=== PATIENT | male | born 1955 | race Caucasian/White ===

== ENCOUNTER 2024-03-31 14:56 | Outpatient (OUT) | payer MEDICARE, SELFPAY | END 2024-03-31 14:57 | disposition home or self-care (01) | LOC: CARD 14:57 | PROVIDERS: PCP Family Medicine; Visit Provider Family Medicine | DX: R55 Syncope and collapse (principal) | CPT/HCPCS: 93246 ==

== ENCOUNTER 2024-04-01 08:39 | Outpatient (OUT) | payer MEDICARE, SELFPAY ==
--- OUTSIDE RECORDS SUMMARY | 2024-04-01 08:47 | XMS_ITS | CCD ---
Author Organization [facility] Care Team Providers Care Oxygen Equipment Aide Name Role Phone DR BRIGIDO MARCOS Attending Unavailable DR BRIGIDO MARCOS Consulting Unavailable DR BRIGIDO MARCOS Primary Care Unavailable DR BRIGIDO MARCOS Admitting Unavailable Problems Active Problems Problem Classification Problem Date Documented Da te Episodic/Chronic Unclassified (2 sources) CONTACT W/AND (SUSP) EXPOS COVID-19; Translations: [CONTACT W/AND (SUSP) EXPOS COVID-19] Onset: 10-25-2021 Viral infection (1 source) COVID-19; Translations: [COVID-19] Onset: 10-25-2021 Past or Other Problems Problem Classification Problem Date Documented Da te Episodic/Chronic Unclassified (1 source) CONTACT W/AND (SUSP) EXPOS COVID-19; Translations: [CONTACT W/AND (SUSP) EXPOS COVID-19] Onset: 10-18-2021 Results Test Name Value Interpretation Reference Range Facil ity Covid-19 PCR (CVDTBH)on SARS-CoV-2 (COVID-19) RNA ROD+probe Ql (Unsp spec) Detected Critically abnormal NOT DETECTED [facility] Comment on above: Result Comment: This test is not yet alan roved or cleared by the [place] FDA. When there are no FDA-approved or cleared tests available, and other criteria are met, FDA can make tests available under an emergency access mechanism called an Emergency Use Authorization (EUA). The EUA for this test is supported by the [employer] of Health and Human Service's (HHS's) declaration that circumstances exist to justify the emergency use of in vitro diagnostics for the detection and/or diagnosis of the virus that causes COVID-19. This EUA will remain in effect (meaning this test can be used) for the duration of the COVID-19 declaration justifying emergency of IVDs, unless it is terminated or revoked by FDA (after which the test may no longer be used). Performed By: #### C VDTB #### [facility] [address] [place], [place] [address] Dr. Nelia Lantigua Encounters Encounter Date Encounter Type Care Provider Facility Start: 10-18-2021 End: 10-18-[address] BRIGIDO MARCOS Facility:H1 Payers Date Payer Category Payer Unknown [id number] 1955 Unknown [id number] Summary Purpose Family History No Family History Records Found Advance Directives No Advanced Directives Records Found Additional Source Comments (unrecognized sect ion and content) No Status Records Found INFORMATION SOURCE (unrecogn ized section and content) DATE CREATED AUTHOR 09/19/2022 [facility] FOR RECORDS PERTAINING TO PATIENTS WHO ARE OR HAVE BEEN ENROLLED IN A CHEMICAL DEPENDENCY/SUBSTANCEABUSE PROGRAM, SOME INFORMATION MAY BE OMITTED. This clinical summary was aggregated from multiple sources. Caution should be exercised in using it in the provision of clinical care. This summary normalizes information from multiple sources, and as a consequence, information in this document may materially change the coding, format and clinical context of patient data. In addition, data may be omitted in some cases. CLINICAL DECISIONS SHOULD BE BASED ON THE PRIMARY CLINICAL RECORDS. [facility] [employer] provides no warranty or guarantee of the accuracy or completeness of information in this document.
[2024-04-01 09:13] LABS: Basophils Absolute Auto 0.1 10^3/uL (0.0-0.1); Eosinophils Absolute Auto 0.8 10^3/uL (0.0-0.7); Eosinophils Percent Auto 8.9 % (0.9-7.0); Hematocrit 39.1 % (42.0-54.0); Hemoglobin 12.9 g/dL (14.0-18.0); Immature Granulocytes Abs Auto 0.01 10^3/uL (0.00-0.03); Immature Granulocytes Pct Auto 0.1 % (0.0-0.5); Lymphocytes Absolute Auto 3.3 10^3/uL (1.2-3.8); Lymphocytes Percent Auto 37.5 % (20.5-60.0); Mean Corpuscular Hemoglobin 30.4 pg (25.9-34.0); Mean Platelet Volume 10.6 fL (9.5-13.5); Monocytes Absolute Auto 0.7 10^3/uL (0.3-0.8); Monocytes Percent Auto 7.8 % (1.7-12.0); Neutrophils Percent Auto 44.7 % (43.0-75.0); Platelet Count 229 10^3/uL (150-450); Red Blood Count 4.25 10^6/uL (4.70-6.10); Red Cell Distribution Width 13.4 % (11.0-15.0); White Blood Count 8.9 10^3/uL (4.0-11.0)
[2024-04-01 10:02] LABS: Alanine Aminotransferase 21 U/L (16-63); Albumin Globulin Ratio 0.9; Albumin Level 3.6 g/dL (3.4-5.0); Alkaline Phosphatase 61 U/L (46-116); Anion Gap 10.5; Aspartate Amino Transferase 18 U/L (15-37); BUN Creatinine Ratio 22.4; Bilirubin Total 0.3 mg/dL (0.2-1.0); Calcium 8.4 mg/dL (8.5-10.1); Carbon Dioxide 28.8 mmol/L (21.0-32.0); Chloride 104 mmol/L (98-107); Cholesterol 207 mg/dL (<=200); Estimated GFR (African America >60 (>=60); Estimated GFR (Non-African Ame >60 (>=60); Free T3 2.13 pg/mL (2.18-3.98); Globulin 4.2 g/dL; Glucose 97 mg/dL (74-106); HDL Cholesterol 70 mg/dL (40-60); Potassium 4.3 mmol/L (3.5-5.1); Sodium 139 mmol/L (136-145); Thyroid Stimulating Hormone 33.689 uIU/mL (0.358-3.740); Total Protein 7.8 g/dL (6.4-8.2); Triglycerides 64 mg/dL (<=150); VLDL CHOLESTEROL 12.8 mg/dL
[2024-04-01 10:51] LABS: Estimated Average Glucose 117 mg/dL; Glycohemoglobin A1C 5.7 % (4.5-6.2)
[2024-04-01 19:19] LABS: Internal Control Within Normal Limits; Occult Blood Positive
[2024-04-02 06:09] LABS: Insulin 4.4 uIU/mL (2.6-24.9)
== END 2024-04-01 08:40 | disposition home or self-care (01) ==
PROVIDERS: PCP Family Medicine; Visit Provider Family Medicine
DX: R55 Syncope and collapse (principal); R00.0 Tachycardia, unspecified; M25.552 Pain in left hip
CPT/HCPCS: 36415; 80053; 80061; 83036; 83525; 84436; 84443; 84481; 85025; G0328

== ENCOUNTER 2024-04-22 09:50 | Outpatient (OUT) | payer MEDICARE, SELFPAY ==
--- NOTE | 2024-04-22 09:59 | CA_ITS ---
Patient Name: JESSICA SWENSON MR#: [id number] : 1955 Exam Date: 04/22/2024 Ordering Doctor: DR Dimitri Pantoja . ECHOCARDIOGRAM REPORT PROCEDURE: CA ECHO DOPPLER COMPLETE INDICATIONS: Syncope and collapse COMPARISON: None. DESCRIPTION: COMPLETE ECHOCARDIOGRAM Real-time transthoracic echocardiography with 2D, M-mode, spectral and color flow Doppler performed. QUALITY: Technical quality was good. LEFT VENTRICLE: Normal chamber size. Normal left ventricular wall thickness. LV EF: Global left ventricular systolic function is normal. Calculated left ventricular ejection fraction is 57%. No significant wall motion abnormalities. DIASTOLIC: Normal diastolic function. ATRIAL SEPTUM: Inadequately seen. LEFT ATRIUM: Normal chamber size. RIGHT ATRIUM: Normal chamber size. RIGHT VENTRICLE: Normal chamber size. Normal right ventricular systolic function. TRICUSPID VALVE: Normal mobility and thickness. No stenosis with mild regurgitation. No evidence of pulmonary hypertension. RVSP 29mmHg MITRAL VALVE: Normal mobility and thickness. No evidence of mitral valve stenosis. There is no mitral annular calcification. Trivial mitral regurgitation. AORTIC VALVE: Normal trileaflet appearance. Thickened aortic valve. Normal leaflet mobility. No evidence of aortic valve stenosis. No aortic regurgitation. AORTIC ROOT: Normal diameter and appearance. PULMONIC VALVE: Normal thickness and mobility. No stenosis. Trivial regurgitation. PERICARDIUM: No evidence of pericardial effusion. IVC: Collapses with inspirations. Normal size. CONCLUSION: 1. Global left ventricular systolic function is normal; visually estimated ejection fraction is 55 to 60% 2. Normal right ventricular size and systolic function 3. The left atrium is normal in size 4. Mild tricuspid regurgitation Adult Echocardiography Procedure Report Left Ventricle LVEDD (3.7 - 5.6 cm): 4.57 cm LVESD (2.2 - 4.0 cm): 3.22 cm LVIVS thickness (0.6 - 1.2 cm): 0.83 cm LVPW thickness (0.5 - 1.0 cm): 0.71 cm e': 0.09 m/s E - e': 5.56 LVOT Max Gradient: 1.84 mm[Hg] LVOT Area (cm2): 0.68 m/s Peak Velocity (LVOT): 0.68 m/s Mean Velocity (LVOT): 0.46 m/s LVOT Diameter 1.86 cm Left Ventricular Ejection Fraction: 57.23 % Left Atrium LA Volume Index (2D A2C): 19.81 ml/m2 Left Atrium Systolic Dimension: 2.85 cm Mitral Valve MV E to A Ratio: 1.12 Mitral Valve A-Wave Peak Velocity: 0.44 m/s Mitral Valve E-Wave Peak Velocity: 0.50 m/s Right Ventricle RV Internal Diastolic Dimension: 3.24 cm Aorta AO Root Diam: 2.95 cm Ascending Ao Diam: 2.46 cm Aortic Valve AoV Area (Peak Dony): 1.76 cm2, 1.76 cm2 AoV Area (VTI): 1.62 cm2, 1.62 cm2 Peak Velocity(Antegrade Flow): 1.05 m/s Peak Gradient(Antegrade Flow): 4.40 mm[Hg] Mean Velocity(Antegrade Flow): 0.75 m/s Mean Gradient(Antegrade Flow): 2.47 mm[Hg] Velocity Time Integral: 24.42 cm Tricuspid Valve Peak Velocity (Regurgitant Flow): 1.68 m/s, 2.11 m/s, 2.53 m/s Pulmonic Valve Peak Velocity: 0.72 m/s Peak Gradient: 2.05 mm[Hg], 2.14 mm[Hg] Right Atrium Right Atrium Systolic Pressure: 32.05 ml, 32.05 ml Dictated by: Suni Mcbride M.D. on 04/22/2024 at 11:13 Approved by: Suni Mcbride M.D. on 04/22/2024 at 11:16
== END 2024-04-22 09:51 | disposition home or self-care (01) ==
LOC: CARD 09:50
PROVIDERS: PCP Family Medicine; Visit Provider Family Medicine
DX: R55 Syncope and collapse (principal); I07.1 Rheumatic tricuspid insufficiency
CPT/HCPCS: 93306

== ENCOUNTER 2024-05-18 14:52 | Outpatient (OUT) | payer MEDICARE, SELFPAY ==
[2024-05-18 15:34] LABS: Free T3 1.63 pg/mL (2.18-3.98); Thyroid Stimulating Hormone 6.589 uIU/mL (0.358-3.740)
== END 2024-05-18 14:53 | disposition home or self-care (01) ==
LOC: LAB 14:52
PROVIDERS: PCP Family Medicine; Visit Provider Family Medicine
DX: E03.9 Hypothyroidism, unspecified (principal)
CPT/HCPCS: 36415; 84436; 84443; 84481

== ENCOUNTER 2024-06-15 11:35 | Outpatient (OUT) | payer MEDICARE, SELFPAY ==
[2024-06-15 12:30] LABS: Free T3 2.82 pg/mL (2.18-3.98); Thyroid Stimulating Hormone 6.729 uIU/mL (0.358-3.740)
== END 2024-06-15 11:36 | disposition home or self-care (01) ==
LOC: LAB 11:35
PROVIDERS: PCP Family Medicine; Visit Provider Family Medicine
DX: E03.9 Hypothyroidism, unspecified (principal)
CPT/HCPCS: 36415; 84436; 84443; 84481

== ENCOUNTER 2025-06-30 10:45 | Outpatient (OUT) | payer MEDICARE, SELFPAY ==
--- OUTSIDE RECORDS SUMMARY | 2025-06-30 10:48 | XMS_ITS | CCD ---
Author Organization [facility] Care Team Providers Care Bar Staff Name Role Phone DR BRIGIDO MARCOS Attending [...] spec) Detected Critically abnormal NOT DETECTED [facility] Comment on above: Result Comment: This test is not yet alna roved or cleared by the [place] FDA. When there are no FDA-approved or cleared tests available, and other criteria are met, FDA can make tests available under an emergency access mechanism called an Emergency Use Authorization (EUA). The EUA for this test is supported by the [place] of Health and Human Service's (HHS's) declaration [...] used). Performed By: #### C VDTB #### [facility] [address] [place], [place] [address] Dr. Nelia Lantigua Encounters Encounter Date Encounter Type Care Provider Facility Start: 10-18-2021 End: 10-18-[address] BRIGIDO MARCSO Facility:H1 Payers Date Payer Category Payer Unknown [id number] 1955 Unknown [id number] Summary Purpose Family History No Family History Records Found Advance Directives No Advanced Directives Records Found Additional Source Comments (unrecognized sect ion and content) No Status Records Found INFORMATION SOURCE (unrecogn ized section and content) DATE CREATED AUTHOR 09/19/2022 [facility] FOR RECORDS PERTAINING TO PATIENTS WHO [...] BE BASED ON THE PRIMARY CLINICAL RECORDS. [facility] [employer] provides no warranty or guarantee of the accuracy or completeness of information in this document.
[2025-06-30 11:15] LABS: Hematocrit 39.6 % (42.0-54.0); Hemoglobin 13.3 g/dL (14.0-18.0); Immature Granulocytes Abs Auto 0.03 10^3/uL (0.00-0.03); Immature Granulocytes Pct Auto 0.3 % (0.0-0.5); Lymphocytes Absolute Auto 2.8 10^3/uL (1.2-3.8); Mean Corpuscular HGB Conc 33.6 g/dL (29.9-35.2); Mean Corpuscular Hemoglobin 30.2 pg (25.9-34.0); Mean Corpuscular Volume 90.0 fL (80.0-94.0); Platelet Count 209 10^3/uL (150-450); Red Blood Count 4.40 10^6/uL (4.70-6.10); White Blood Count 9.5 10^3/uL (4.0-11.0)
[2025-06-30 12:19] LABS: Alanine Aminotransferase 27 U/L (16-63); Albumin Globulin Ratio 0.9; Albumin Level 3.8 g/dL (3.4-5.0); Alkaline Phosphatase 66 U/L (46-116); Anion Gap 11.2; Aspartate Amino Transferase 23 U/L (15-37); Blood Urea Nitrogen 22.0 mg/dL (7.0-18.0); Calcium 9.3 mg/dL (8.5-10.1); Carbon Dioxide 29.5 mmol/L (21.0-32.0); Chloride 104 mmol/L (98-107); Cholesterol 270 mg/dL (<=200); Estimated GFR (African America >60 (>=60 mL/min/1.73m^2); Estimated GFR (Non-African Ame >60 (>=60 mL/min/1.73m^2); Free T3 1.50 pg/mL (2.18-3.98); Globulin 4.2 g/dL; Glucose 97 mg/dL (74-106); HDL Cholesterol 68 mg/dL (40-60); Potassium 4.7 mmol/L (3.5-5.1); Sodium 140 mmol/L (136-145); Thyroid Stimulating Hormone 5.445 uIU/mL (0.358-3.740); Total Protein 8.0 g/dL (6.4-8.2); Triglycerides 90 mg/dL (<=150); VLDL CHOLESTEROL 18.0 mg/dL
== END 2025-06-30 10:46 | disposition home or self-care (01) ==
LOC: LAB 10:45
PROVIDERS: PCP Family Medicine; Visit Provider Family Medicine
DX: E03.9 Hypothyroidism, unspecified (principal); M53.86 Other specified dorsopathies, lumbar region; R73.09 Other abnormal glucose; Z12.5 Encounter for screening for malignant neoplasm of prostate
CPT/HCPCS: 36415; 80053; 80061; 83036; 84436; 84443; 84481; 85025; G0103; G0328

== ENCOUNTER 2025-07-30 09:07 | Outpatient (OUT) | payer MEDICARE, SELFPAY ==
--- OUTSIDE RECORDS SUMMARY | 2025-07-30 09:16 | XMS_ITS | Patient Health Record ---
Author Organization The [facility] [place] Address [address] [place] [address] Care Team Providers Care Eligibility Analyst Name Role Phone Miguel Pantoja Primary Care Provider [phone] Allergies Allergen (clinical drug ingredient) Drug/Non Drug Allergy documented on EMR Reaction Allergy Type Onset Date Status Penicillin rash/hives Drug Allergy Activ e Results Component Value Reference Range Notes PROF 14(COMP METB) Reviewed date:06/30/2025 01:18:16 PM Interpretation: Performing Lab: Notes/Report: [facility] , Sodium 140 136-145 mmol/L Potassium 4.7 3.5-5.1 mmol/L Chloride 104 98-107 mmol/L Carbon Dioxide 29.5 21.0-32.0 mmol/L Anion Gap 11.2 Glucose 97 74-106 mg/dL Blood Urea Nitrogen 22.0 7.0-18.0 mg/dL Creatinine 0.92 0.70-1.30 mg/dL Estimated GFR ( Urimla >60 >=60 mL/min/1.73m 2 Estimated GFR (Non- Tameka >60 >=60 mL/min/1.73m 2 BUN Creatinine Ratio 23.9 Calcium 9.3 8.5-10.1 mg/dL Bilirubin Total 0.3 0.2-1.0 mg/dL Aspartate Amino Transferase 23 15-37 U/L Alanine Aminotransferase 27 16-63 U/L Alkaline Phosphatase 66 46-116 U/L Total Protein 8.0 6.4-8.2 g/dL Albumin Level 3.8 3.4-5.0 g/dL Globulin 4.2 Albumin Globulin Ratio 0.9 Performing Lab: see note ML - [facility] LB PSA SCREENING Reviewed date:06/30/2025 01:18:16 PM Interpretation: Performing Lab: Notes/Report: [facility] , Prostate Specific Antigen Scrn 0.81 <=4.00 ng/mL Performing Lab: see note ML - [facility] LB T4 Reviewed date:06/30/2025 01:18:16 PM Interpretation: Performing Lab: Notes/Report: [facility] , T4 Thyroxine 8.30 4.50-12.10 ug/dL Performing Lab: see note ML - [facility] LB TSH Reviewed date:06/30/2025 01:18:16 PM Interpretation: Performing Lab: Notes/Report: [facility] , Thyroid Stimulating Hormone 5.445 0.358-3.740 u IU/mL Performing Lab: see note ML - [facility] LB LIPID PROFILE Reviewed date:06/30/2025 01:18:16 PM Interpretation: Performing Lab: Notes/Report: [facility] , Triglycerides 90 <=150 mg/dL Cholesterol 270 <=200 mg/dL HDL Cholesterol 68 40-60 mg/dL > or =60 mg/dl - LOW CARDIOVASCULAR RISK <40 mg/dl - HIGH CARDIOVASCULAR RISK LDL Cholesterol Calculated 184.0 130-159 mg/dl BORDERLINE HIGH >190 mg/dl VERY HIGH <100 mg/dl OPTIMAL 100-129 mg/dl NEAR OR ABOVE OPTIMAL 160-189 mg/dl HIGH VLDL CHOLESTEROL 18.0 Chol HDL Ratio 4.0 7.1 - 11.0 MODERATE RISK 4.4 - 7.1 AVERAGE RISK >11.0 HIGH RISK 3.3 - 4.4 LOW RISK Performing Lab: see note ML - [facility] LB GLYCOHEMOGLOBIN A1C Reviewed date:06/30/2025 01:18:16 PM Interpretation: Performing Lab: Notes/Report: [facility] , Glycohemoglobin A1C 5.6 4.5-6.2 % > 7.0 ADA RECOMMENDED LIMIT 4.0 - 6.0 ACTION SUGGESTED ADA THERAPEUTIC TARGET < 7.0 Estimated Average Glucose 114 Performing Lab: see note ML - [facility] FREE T3 Reviewed date:06/30/2025 01:18:16 PM Interpretation: Performing Lab: Notes/Report: [facility] , Free T3 1.50 2.18-3.98 pg/mL Performing Lab: see note ML - [facility] LB CBC AUTO DIFF Reviewed date:06/30/2025 01:18:16 PM Interpretation: Performing Lab: Notes/Report: [facility] , White Blood Count 9.5 4.0-11.0 10 3/uL Red Blood Count 4.40 4.70-6.10 10 6/uL Hemoglobin 13.3 14.0-18.0 g/dL Hematocrit 39.6 42.0-54.0 % Mean Corpuscular Volume 90.0 80.0-94.0 fL Mean Corpuscular Hemoglobin 30.2 25.9-34.0 pg Mean Corpuscular HGB Conc 33.6 29.9-35.2 g/dL Red Cell Distribution Width 13.3 11.0-15.0 % Platelet Count 209 150-450 10 3/uL Mean Platelet Volume 10.6 9.5-13.5 fL Neutrophils Percent Auto 57.8 43.0-75.0 % Lymphocytes Percent Auto 29.3 20.5-60.0 % Monocytes Percent Auto 6.1 1.7-12.0 % Eosinophils Percent Auto 5.4 0.9-7.0 % Basophils Percent Auto 1.1 0.2-2.0 % Immature Granulocytes Pct Auto 0.3 0.0-0.5 % Neutrophils Absolute Auto 5.5 1.4-6.5 10 3/uL Lymphocytes Absolute Auto 2.8 1.2-3.8 10 3/uL Monocytes Absolute Auto 0.6 0.3-0.8 10 3/uL Eosinophils Absolute Auto 0.5 0.0-0.7 10 3/uL Basophils Absolute Auto 0.1 0.0-0.1 10 3/uL Immature Granulocytes Abs Auto 0.03 0.00-0.03 10 3/uL Performing Lab: see note ML - [facility] LB Reason For Referral No Information Medications Medication SIG (Take, Route, Frequency, Duration) Notes Start Date End Date Status Liothyronine Sodium 5 MCG 2 tablet on an empty stomach Orally Once a day; Duration: 30 days 06/30/2025 Active Levothyroxine Sodium 100 MCG 1 tablet in the morning on an empty stomach Orally Once a day; Duration: 30 days Active Ferrous Sulfate 325 (65 Fe) MG 1 tablet Orally daily; Duration: 30 days 06/30/2025 Active Simvastatin 20 MG 1 tablet in the even ing Orally Once a day; Duration: 30 days 06/30/2025 Active Diclofenac Sodium 75 MG 1 tablet as need ed Orally Twice a day 03/31/2024 Active Social History Tobacco Use: Social History Observation Description Date Details (start date - stop date) Current Smoker 10/13/1969 - NA Tobacco Control (Standard) Question Answer Notes Tobacco use: Current smoker When did you start smoking? 10/13/1969 How often do you smoke cigarettes? Every day How many cigarettes a day do you smoke? 6-10 Additional Findings: Tobacco user Light cigarett e smoker (1-9 cigs/day) AUDIT-C (Standard) Question Answer Notes Did you have a drink containing alcohol in the p ast year? No Points 0 Interpretation Negative Problems Problem Type SNOMED Code ICD Code Onset Dates Problem Status W/U Status Risk Notes Problem Hypothyroidism (51760260) Hypothyroidism, unspecified (E03.9) Active confirmed Problem Hyperlipidemia (11745736) Hyperlipidemia (E78.5) Active confirmed Problem Tachycardia (8694865) Tachycardia (R00.0) Active confirmed Problem Anemia (446879659) Anemia (D64.9) Active confirmed Problem Syncope (962967276) Syncope (R55) Active confirmed Problem Arthralgia of the pelvic region and thigh (408247374) Left hip pain (M25.552) Active confirmed Problem Disorder of sacrum (88769135) Low back derangement syndrome (M53.86) Active confirmed Vital Signs Blood pressure diastolic 82 mm Hg 06/29/2025 Height 67 in 06/29/2025 Blood pressure systolic 128 mm Hg 06/29/2025 Weight 122 lbs 06/29/2025 BMI 19.11 kg/m2 06/29/2025 Encounters Encounter Location Date Provider Diagnosis [facility] [address] [place] [address] 06/29/2025 Miguel Pantoja Hypothyroidism, unspecified E03.9 and Low back derangement syndrome M53.86 [facility] [address] [place] [address] 06/23/2025 Miguel Yanesy [facility] [address] [place] [address] 06/30/2025 Miguel Pantoja Hypothyroidism, unspecified E03.9 and Hyperlipidemia E78.5 [facility] [address] [facility] [address] 07/01/2025 Miguel Pantoja Assessments Encounter Date Diagnosis (ICD Code) Assessment Notes Treatment Notes Treatment Clinical Notes Section Notes 06/29/2025 Hypothyroidism, unspecified (ICD-10 - E03.9) 06/29/2025 Low back derangement syndrome (ICD-10 - M53.86) 06/30/2025 Hypothyroidism, unspecified (ICD-10 - E03.9) 06/30/2025 Hyperlipidemia (ICD-10 - E78.5) Plan Of Treatment Pending Test Test Name Order Date Holter Test 03/31/2024 CMP (COMPLETE METABOLIC PANEL) 4 HEMOGLOBIN A1C (GLYCO) 06/29/2025 HEMOGLOBIN A1C (GLYCO) 03/31/2024 INSULIN, TOTAL 03/31/2024 LIPID PANEL (CHOL/TRIG/HDL/LDL) 03/31/20 24 LIPID PANEL (CHOL/TRIG/HDL/LDL) 06/29/20 25 CBC WITH DIFF 03/31/2024 STOOL OCCULT BLOOD 03/31/2024 STOOL OCCULT BLOOD 06/29/2025 LIVER PROFILE 06/30/2025 THYROID PANEL (T4/TSH/FREE T3) 4 THYROID PANEL (T4/TSH/FREE T3) 5 THYROID PANEL (T4/TSH/FREE T3) 4 THYROID PANEL (T4/TSH/FREE T3) 4 THYROID PANEL (T4/TSH/FREE T3) 5 THYROID PANEL (T4/TSH/FREE T3) 4 ECHOCARDIO M/2D COMPLETE 03/31/2024 PSA, SCREENING 06/29/2025 Lipid Panel 06/30/2025 CT CHEST LOW DOSE (LDCT) 06/29/2025 CMP (COMP MET [place]) w/eGFR CKD-EPI 2024 CBC WITH DIFF 06/29/2025 Insurance Providers Payer Name Payer Address Payer Phone Subscriber Number Group Number Insured Name Patient Relationship to Insured Coverage Start Date Coverage End Date [employer] PLAN [address] [place] [phone] [id number] Gilbert Horta Self - patient is the insured Medical (General) History Medical History History ICD Code COVID-19 U07.1 Vasovagal syncope R55
--- OUTSIDE RECORDS SUMMARY | 2025-07-30 09:16 | XMS_ITS | CCD ---
Author Organization [facility] Care Team Providers Care Silverware Assembler Name Role Phone DR BRIGIDO MARCOS Attending [...] spec) Detected Critically abnormal NOT DETECTED [facility] Comment on above: Result Comment: This test is not yet alan roved or cleared by the [place] FDA. When there are no FDA-approved or cleared tests available, and other criteria are met, FDA can make tests available under an emergency access mechanism called an Emergency Use Authorization (EUA). The EUA for this test is supported by the [place] of Health and Human Service's (HHS's) declaration [...] used). Performed By: #### C VDTB #### [facility] [address], [place] [address] Dr. Nelia Lantigua Encounters Encounter Date Encounter Type Care Provider Facility Start: 10-18-2021 End: 10-18-[address] BRIGIDO MARCOS Facility:H1 Payers Date Payer Category Payer Unknown [id number] 1955 Unknown [id number] Summary Purpose Family History No Family History Records Found Advance Directives No Advanced Directives Records Found Additional Source Comments (unrecognized sect ion and content) No Status Records Found INFORMATION SOURCE (unrecogn ized section and content) DATE CREATED AUTHOR 09/19/2022 [facility] FOR RECORDS PERTAINING TO PATIENTS WHO ARE [...] BE BASED ON THE PRIMARY CLINICAL RECORDS. [facility] [employer] provides no warranty or guarantee of the accuracy or completeness of information in this document.
[2025-07-30 10:23] LABS: Free T3 2.91 pg/mL (2.18-3.98); Thyroid Stimulating Hormone 3.079 uIU/mL (0.358-3.740)
== END 2025-07-30 09:08 | disposition home or self-care (01) ==
LOC: LAB 09:14
PROVIDERS: PCP Family Medicine; Visit Provider Family Medicine
DX: E03.9 Hypothyroidism, unspecified (principal); E78.5 Hyperlipidemia, unspecified
CPT/HCPCS: 36415; 84436; 84443; 84481